=== PATIENT | male | born 1970 | race Caucasian/White ===

== ENCOUNTER 2023-12-13 06:06 | Inpatient (IN) | payer OTHER ==
[2023-12-13] MEDS ORDERED: LORazepam 2 MG/ML VIAL ONE (06:30)
[2023-12-13] MEDS ORDERED: MORPHINE 4 MG/ML SYR ONE ×3 (07:21→14:10)
[2023-12-13] MEDS ORDERED: ONDANSETRON 4 MG/2 ML VIAL ONE (07:21)
[2023-12-13] MEDS ORDERED: LIDOCAINE 1% 20 ML MDV ONE (07:23)
[2023-12-13] MEDS ORDERED: ATROPINE SULF 1 MG/10 ML SYR IV ONE ×2 (07:26→13:54)
[2023-12-13 07:35] LABS: Absolute Eosinophils 0.2 K/uL (0-0.5); Absolute Monocytes 0.5 K/uL (0.1-1.3); Absolute Neutrophil 5.1 K/uL (1.8-8.0); Basophils % 0.7 % (0-1.3); Eosinophils % 2.6 % (0-4.4); Hematocrit 42.6 % (39.6-49.0); Lymphocytes % 14.4 % (15.3-44.8); MCH 32.3 pg (27.0-35.0); MCHC 32.9 g/dL (32.0-36.0); MCV 98.2 fL (80-100); MPV 8.3 fL (7.6-11.3); Monocytes % 6.9 % (3.3-12.3); Neutrophils % 75.4 % (41.7-73.7); Nucleated Red Blood Cells % 0.1 % (0-0); Platelets 163 thou/uL (152-406); RBC Red Blood Cell Count 4.33 M/uL (4.33-5.43); Red Cell Distribution Width 15.7 % (12.1-15.2)
[2023-12-13 07:38] LABS: Protime INR 1.17
[2023-12-13] MEDS ORDERED: SODIUM BICARB 50 MEQ/50ML VIAL ONE ×2 (07:45→08:11)
[2023-12-13] MEDS ORDERED: NOREPINEPHRINE BITARTRATE/D5W 4 MG/250 ML KIT IV ONE (07:46)
--- NOTE | 2023-12-13 08:03 | EDPHYS ---
Physician Documentation [facility] Name: Jamaal Goins Age: 53 yrs Sex: Male : 1970 Arrival Date: 12/13/2023 Time: 06:06 Bed 6 Private MD: ED Physician Gurinder Hinojosa HPI: 12/12 06:43 This 53 yrs old Male presents to ER via Ambulatory with complaints of feeling sp4 unwell . 07:57 Presents with acute generalized weakness and tremors. Heart rate on arrival is 30. sp4 Patient has history of end-stage renal disease last dialysis [facility] 2 days ago. Patient states he woke up feeling badly with generalized parameters and dizziness. Historical: - Allergies: 06:20 GREEN PEAS; jj7 - Home Meds: 08:02 Unable to obtain [Active]; mb9 - PMHx: 06:20 Hypertensive disorder; Gout; jj7 08:02 diaylsis- MWF; leaky valve; mb9 - PSHx: 08:02 fistula; gastric sleeve; mb9 - Immunization history:: Adult Immunizations up to date, Client reports receiving the 2nd dose of the Covid vaccine. - Infectious Disease History:: Denies. - Social history:: Smoking status: Reported history of juuling and/or vaping. Patient uses alcohol, but reports only rare drinking. Patient/guardian denies using street drugs, IV drugs. - Family history:: not pertinent. ROS: 07:57 Constitutional: Generalized weakness, positive tremors, positive dizziness sp4 07:57 All other systems are negative, Exam: 07:57 Constitutional: This is a well developed, well nourished patient who is awake, alert, sp4 generalized pallor and diaphoresis, bradycardia, left arm hemodialysis fistula on exam, full chest wall scars from prior vascular access Head/Face: Normocephalic, atraumatic. Eyes: Pupils equal round and reactive to light, extra-ocular motions intact. Lids and lashes normal. Conjunctiva and sclera are not injected. Cornea within normal limits. Periorbital areas with no swelling, redness, or edema. ENT: Nares patent. No nasal discharge, no septal abnormalities noted. Tympanic membranes are normal and external auditory canals are clear. Oropharynx with no redness, swelling, or masses, exudates, or evidence of obstruction, uvula midline. Mucous membranes moist. Neck: Trachea midline, no thyromegaly or masses palpated, and no cervical lymphadenopathy. Supple, full range of motion without nuchal rigidity, or vertebral point tenderness. Chest/axilla: Normal chest wall appearance and motion. Nontender with no deformity. No lesions are appreciated. Cardiovascular: Bradycardia in the 30s, diaphoresis, thready pulses Respiratory: Lungs have equal breath sounds bilaterally, clear to auscultation and percussion. No rales, rhonchi or wheezes noted. No increased work of breathing, no retractions or nasal flaring. Abdomen/GI: Soft, with normal bowel sounds. No distension or tympany. No guarding or rebound. No evidence of tenderness throughout. Back: No spinal tenderness. No costovertebral tenderness. Skin: Warm, dry with normal turgor. Normal color with no rashes, no lesions, and no evidence of cellulitis. MS/ Extremity: Pulses equal, no cyanosis. Neurovascular intact. Full, normal range of motion. Neuro: Awake and alert, GCS 15, oriented to person, place, time, and situation. Cranial nerves II-XII grossly intact. Motor strength 5/5 in all extremities. Sensory grossly intact. Psych: Awake, alert, with orientation to person, place and time. Behavior, mood, and affect are within normal limits 08:03 ECG was reviewed by the Attending Physician. EKG at 0 654 after IV atropine sinus sp4 rhythm first-degree AV block, left axis deviation , rate 88 Vital Signs: 06:17 BP 160 / 86; Pulse 66; Resp 18; Temp 98.2; Pulse Ox 100% ; Weight 89.81 kg; Height 6 jj7 ft. 0 in. ; Pain 0/10; 07:00 BP 153 / 93; Pulse 83; Resp 16; Pulse Ox 100% on R/A; ld1 07:10 BP 157 / 87; Pulse 76; Resp 15; Pulse Ox 100% ; ld1 07:20 BP 162 / 100; Pulse 60; Resp 18; Pulse Ox 100% ; ld1 07:23 BP 164 / 104; Pulse 59; Resp 10; Pulse Ox 100% ; ld1 07:26 BP 146 / 71; Pulse 54; Resp 14; Pulse Ox 100% ; ld1 07:37 BP 146 / 71; Pulse 48; Resp 16; Pulse Ox 100% on 3 lpm NC; mb9 07:38 BP 110 / 86; Pulse 60; Resp 19; Pulse Ox 99% on 6 lpm NC; ld1 07:40 BP 80 / 31; Pulse 60; Resp 14; Pulse Ox 98% on 6 lpm NC; ld1 07:42 BP 40 / 24; Pulse 60; Resp 20; Pulse Ox 98% on 6 lpm NC; ld1 07:45 BP 80 / 31; Pulse 60; Resp 15; Pulse Ox 100% on 2 lpm NC; mb9 07:51 BP 40 / 24; Pulse 65; Resp 15; Pulse Ox 100% on 3 lpm NC; mb9 07:59 BP 132 / 71; Pulse 70; Resp 18; Pulse Ox 100% on 3 lpm NC; mb9 08:03 BP 132 / 71; Pulse 70; Resp 19; Pulse Ox 100% on 6 lpm NC; ld1 08:10 BP 44 / 35; Pulse 70; Resp 18; Pulse Ox 97% on 6 lpm NC; ld1 08:23 BP 45 / 26; Pulse 77; Resp 32; Pulse Ox 98% on 6 lpm NC; ld1 08:25 BP 161 / 63; Pulse 95; Resp 23; Pulse Ox 100% on 6 lpm NC; ld1 08:36 BP 137 / 79; Pulse 79; Resp 18; Pulse Ox 100% on 2 lpm NC; mb9 08:40 BP 156 / 61; Pulse 80; Resp 13; Pulse Ox 100% on 2 lpm NC; mb9 08:45 BP 74 / 60; Pulse 81; Resp 14; Pulse Ox 100% 2 lpm ; mb9 08:58 BP 111 / 56; Pulse 81; Resp 14; Pulse Ox 100% on 2 lpm NC; mb9 09:15 BP 136 / 77; Pulse 79; Resp 20; Pulse Ox 100% on 2 lpm NC; mb9 09:45 BP 109 / 80; Pulse 73; Resp 18; Pulse Ox 100% on 2 lpm NC; mb9 10:21 BP 122 / 90; Pulse 70; Resp 15; Pulse Ox 100% on 2 lpm NC; mb9 10:45 BP 138 / 75; Pulse 77; Resp 26; Pulse Ox 100% ; ld1 11:15 BP 131 / 52; Pulse 77; Resp 24; Pulse Ox 100% ; ld1 12:00 BP 132 / 82; Pulse 70; Resp 18; Pulse Ox 100% on 2 lpm NC; mb9 12:41 BP 125 / 95; Pulse 80; Resp 18; Pulse Ox 99% on 2 lpm NC; ld1 13:30 BP 138 / 78; Pulse 70; Resp 20; Pulse Ox 100% on R/A; mb9 14:23 BP 145 / 97; Pulse 68; Resp 18; Pulse Ox 100% on 2 lpm NC; mb9 15:33 BP 133 / 74; Pulse 67; Resp 18; Pulse Ox 100% on R/A; mb9 16:09 BP 139 / 85; Pulse 65; Resp 18; Pulse Ox 100% on R/A; ld1 17:18 BP 139 / 86; Pulse 72; Resp 18; Pulse Ox 100% on R/A; mb9 06:17 Body Mass Index 26.85 (89.81 kg, 182.88 cm) [facility] 06:17 Pain Scale: Adult [facility] [place] Coma Score: 07:57 Eye Response: spontaneous(4). Motor Response: obeys commands(6). Verbal Response: sp4 oriented(5). Total: 15. Procedures: 07:57 Central Line: the site was prepped with Betadine, in sterile fashion, a triple lumen sp4 catheter was inserted, in the right femoral vein, in 1 attempts. placement was verified, by blood return, Ultrasound-guided central line, the site was dressed with 4X4s, Tegaderm, using sterile technique, the patient tolerated the procedure, well. Peacemaker applied secondary to symptomatic bradycardia. MDM: 06:45 Patient medically screened. sp4 07:57 Differential Diagnosis altered mental status, sepsis, flu. Data reviewed: vital signs, sp4 nurses notes, EMS record, lab test result(s), EKG, radiologic studies, plain films. Consideration of Admission/Observation Escalation of care including admission/observation considered. Management of patient was discussed with the following: Clinical Trials Manager: Ironing Pleater at [facility]. ED course: Patient improved with the pacemaker. 08:36 ED course: Spoke with area loss prevention manager at [facility] who advised emergent dialysis sp4 before transfer. There is strongly advised emergent dialysis and she requested that we will recollect potassium level prior to transfer. . 08:36 Transition of care: After a detail discussion of the patient's case, care is sp4 transferred to Gurinder Hinojosa MD. 08:48 ED course: Patient care was signed to Dr. Hinojosa at 8 :48 AM . sp4 15:03 ED course: Patient now status post dialysis with post dialysis 1 hour BMP at 5.4. sp3 External pacemaker has been turned off and patient is maintaining sinus rhythm with EKG on the chart. At this time I have contacted the area loss prevention manager at [place] who agrees that transfer is not indicated due to resolution of symptoms after the dialysis. Will keep patient here admitted to our hospitalist service with continued cardiology and renal consult.. 12/12 06:44 Order name: Basic Metabolic Panel; Complete Time: 08:26 sp4 12/12 06:44 Order name: CBC with Diff; Complete Time: 07:48 sp4 12/12 06:44 Order name: LFT's; Complete Time: 08:26 sp4 12/12 06:44 Order name: Magnesium; Complete Time: 08:26 sp4 12/12 06:44 Order name: NT PRO-BNP; Complete Time: 08:26 sp4 12/12 06:44 Order name: PT-INR; Complete Time: 07:48 sp4 12/12 06:44 Order name: Troponin HS; Complete Time: 08:26 sp4 12/12 08:21 Order name: BMP; Complete Time: 09:21 ld1 12/12 08:29 Order name: BMP; Complete Time: 15:03 sp4 12/12 16:48 Order name: CBC with Automated Diff EDMS 12/12 16:48 Order name: CBC with Automated Diff EDMS 12/12 16:48 Order name: Comprehensive Metabolic Panel EDMS 12/12 16:48 Order name: Comprehensive Metabolic Panel EDMS 12/12 16:48 Order name: Magnesium EDMS 12/12 16:48 Order name: Magnesium EDMS 12/12 06:44 Order name: XRAY Chest (1 view); Complete Time: 09:21 sp4 12/12 16:45 Order name: CONS Physician Consult EDMS 12/12 06:44 Order name: Cardiac monitoring; Complete Time: 07:03 sp4 12/12 06:44 Order name: EKG - Nurse/Tech; Complete Time: 07:03 sp4 12/12 06:44 Order name: IV Saline Lock; Complete Time: 07:03 sp4 12/12 06:44 Order name: Labs collected and sent; Complete Time: 07:03 4 12/12 06:44 Order name: O2 Per Protocol; Complete Time: 07:02 4 12/12 06:44 Order name: O2 Sat Monitoring; Complete Time: 07:02 4 12/12 06:44 Order name: Central Line Dressing Kit; Complete Time: 07:02 sp4 12/12 06:44 Order name: Central Line Kit; Complete Time: 07:02 4 12/12 06:44 Order name: Chlorhexidine prep; Complete Time: 07:02 sp4 12/12 06:44 Order name: Line Caps x3; Complete Time: 07:02 sp4 12/12 06:44 Order name: NS Flushes x3; Complete Time: 07:02 4 12/12 06:44 Order name: Sterile Gloves; Complete Time: 07:02 4 12/12 06:44 Order name: Sterile Probe Cover; Complete Time: 07:02 sp4 EC:03 Rate is 88 beats/min. Rhythm is regular, Sinus Rhythm. Left axis deviation noted. [place] sp4 interval is prolonged. QRS interval is prolonged. Clinical impression: No evidence of ischemia. Interpreted by me. Reviewed by me. Administered Medications: 16:43 Discontinued: norepinephrine0.1 mcg/kg/min IV at calculated rate See Administration mb9 Instructions; (Standard concentration 4 mg / 250 mL D5W); Recommended max rate 3 mcg/kg/min; Titrate 0.05 mcg/kg/min as often as every 5 minutes to achieve goal (see titration policy); Goal parameter MAP greater than 65 mmHg. 06:50 Drug: Sodium Bicarbonate IVP 2 amp IVP once; (50 mL); equals 50 mEq Route: IVP; Site: 9 right forearm; 07:45 Follow up: Response: No adverse reaction ld1 06:50 Drug: Sodium Bicarbonate IVP 1 amp IVP once; (50 mL); equals 50 mEq {Note: given by mb9 previous nurse Abad.} Route: IVP; Site: right forearm; 09:10 Follow up: Response: No adverse reaction mb9 07:20 Drug: Ondansetron IVP 4 mg IVP once; over 2 minutes Route: IVP; Site: right forearm; mb9 08:21 Follow up: Response: No adverse reaction ld1 07:24 Drug: morphine IVP or IV 4 mg IVP once over 4 mins Route: IVP; Infused Over: 4 mins; mb9 Site: right forearm; 07:30 Follow up: Response: No adverse reaction ld1 07:26 Drug: Atropine IVP 1 mg IVP once Route: IVP; Site: right forearm; mb9 07:50 Follow up: Response: No adverse reaction ld1 07:43 Drug: morphine IVP or IV 4 mg IVP once over 4 mins Route: IVP; Infused Over: 4 mins; mb9 Site: right forearm; 08:15 Follow up: Response: No adverse reaction ld1 07:51 Drug: Sodium Bicarbonate IVP 1 amp IVP once; (50 mL); equals 50 mEq Route: IVP; Site: mb9 right femoral; 08:15 Follow up: Response: No adverse reaction ld1 07:51 Drug: Norepinephrine IV 0.1 mcg/kg/min IV at calculated rate See Administration mb9 Instructions; (Standard concentration 4 mg / 250 mL D5W); Recommended max rate 3 mcg/kg/min; Titrate 0.05 mcg/kg/min as often as every 5 minutes to achieve goal (see titration policy); Goal parameter MAP greater than 65 mmHg. Route: IV; Rate: calculated rate; Site: right femoral; 17:20 Follow up: Response: No adverse reaction; Blood pressure is elevated; IV Status: mb9 Completed infusion 08:14 Drug: Sodium Bicarbonate IVP 1 amp IVP once; (50 mL); equals 50 mEq Route: IVP; Site: ld1 right femoral; 08:37 Follow up: Response: No adverse reaction mb9 08:15 Drug: Magnesium Sulfate IVPB 2 grams IVPB once over 2 hrs Route: IVPB; Infused Over: 2 ld1 hrs; Site: right femoral; 10:14 Follow up: Response: No adverse reaction; IV Status: Completed infusion mb9 08:15 Drug: D10 in Water IVP 250 ml IVP once Route: IVP; Site: right femoral; ld1 08:40 Follow up: Response: No adverse reaction mb9 08:19 Drug: Calcium Chloride IVP 1 grams IVP once Route: IVP; Site: right femoral; ld1 08:41 Follow up: Response: No adverse reaction mb9 08:20 Drug: Insulin Regular Human IVP 5 units IVP once {Co-Signature: ld1 (Isabella Reis RN).} mb9 Route: IVP; Site: right femoral; 08:40 Follow up: Response: No adverse reaction mb9 08:21 Not Given (Other Intervention Used): mupirocinointment 2 % 1 application Topical once ld1 08:32 Drug: Calcium Gluconate IVPB 1 grams IVPB once over 60 mins; (mix in NS 100 mL) Route: mb9 IVPB; Infused Over: 60 mins; Site: right femoral; 09:26 Follow up: Response: No adverse reaction; IV Status: Completed infusion mb9 08:37 Drug: D10 in Water IVP 250 ml IVP once Route: IVP; Site: right forearm; mb9 09:12 Follow up: Response: No adverse reaction mb9 Disposition Summary: 12/13/23 15:08 Hospitalization Ordered Notes: Hospitalization Status: Inpatient Admission sp3 Provider: Teddy Linares sp3 Condition: Stable(12/13/23 15:08) sp3 Problem: an acute exacerbation(12/13/23 15:08) sp3 Symptoms: have improved(12/13/23 15:08) sp3 Bed/Room Type: Standard sp3 Location: Intensive Care Unit(12/13/23 16:57) eb Room Assignment: 1-(12/13/23 16:59) eb Diagnosis - Hyperkalemia, complete heart block now resolved sp3 Forms: - Medication Reconciliation Form sp3 - SBAR form sp3 - Leadership Thank You Letter sp3 Critical care time excluding procedures: 08:03 Critical care time: Bedside Care: 36 minutes, Consultation: 12 minutes, Family sp4 Intervention: 12 minutes. Total time: 60 minutes 15:04 Critical care time: Bedside Care: 10 minutes, Consultation: 10 minutes, Family sp3 Intervention: 10 minutes. Total time: 30 minutes Signatures: Dispatcher [employer] EDMN Lelia Carlos Isabella Reis, RN RN ld1 Gurinder Hinojosa MD MD sp3 Milli Martines RN RN jjHeidi Hdz RN RN mb9 Ward West MD MD sp4 Isabella Reis RN ld1 Corrections: (The following items were deleted from the chart) 06:44 06:44 BASIC METABOLIC PANEL+C.LAB.BRZ ordered. EDMS EDMS 06:44 06:44 CBC+H.LAB.BRZ ordered. EDMS EDMS 06:44 06:44 HEPATIC FUNCTION+C.LAB.BRZ ordered. EDMS EDMS 06:44 06:44 MAGNESIUM+C.LAB.BRZ ordered. EDMS EDMS 06:44 06:44 PROBNP+C.LAB.BRZ ordered. EDMS EDMS 06:44 06:44 PROTIME (+INR)+COAG.LAB.BRZ ordered. EDMS EDMS 06:44 06:44 Troponin High Sensitivity+C.LAB.BRZ ordered. EDMS EDMS 06:45 06:44 Chest Single View+RAD.RAD.BRZ ordered. EDMS EDMS 08:03 08:02 Home Meds: None; mb9 mb9 09:12 06:44 Consent for central line completed ordered. sp4 mb9 15:05 08:03 [facility] cardiology sp4 sp3 15:05 08:03 [facility] sp4 sp3 15:05 08:03 Higher level of care sp4 sp3 15:05 08:03 Critical sp4 sp3 15:05 08:03 new sp4 sp3 15:05 08:03 have improved sp4 sp3 15:05 08:03 Traumatic bradycardia, complete heart block,, cardiogenic shock, end-stage renal sp3 disease on hemodialysis sp4 16:57 15:08 Telemetry/MedSurg (Inpatient) sp3 eb 16:57 15:08 sp3 eb 16:59 16:57 6- eb eb
--- NOTE | 2023-12-13 08:03 | ER ---
Nurse's Notes [facility] Name: Jamaal Goins Age: 53 yrs Sex: Male : 1970 Arrival Date: 12/13/2023 Time: 06:06 Bed 6 Private MD: Diagnosis: Hyperkalemia, complete heart block now resolved Presentation: 12/12 06:17 Chief complaint: EMS states: HAVING SZ LIKE ACTIVITY. FIRST ONE AT 1:30A. LASTED 45 jj7 SEC. THAN ANOTHER AT 3:30A. THEN AT 5:30A. NO SZ HX. VISITING FROM OUT OF TOWN USUALLY DOES DIALYSIS M,W,F BUT THEY SCHEDULE HIM THR AND THURSDAY. Coronavirus screen: At this time, the client does not indicate any symptoms associated with coronavirus-19. Ebola Screen: No symptoms or risks identified at this time. Initial Sepsis Screen: Does the patient meet any 2 criteria? No. Patient's initial sepsis screen is negative. Does the patient have a suspected source of infection? No. Patient's initial sepsis screen is negative. Risk Assessment: Do you want to hurt yourself or someone else? Patient reports no desire to harm self or others. Onset of symptoms was December 13, 2023 at 01:30. 06:17 Method Of Arrival: Ambulatory [facility] 06:17 Acuity: DANIEL 3 jj7 08:23 Acuity: DANIEL 1 ld1 Triage Assessment: 06:20 General: Appears in no apparent distress. comfortable, Behavior is calm, cooperative, jj7 appropriate for age. Pain: Denies pain. Neuro: No deficits noted. Level of Consciousness is awake, alert, obeys commands, Oriented to person, place, time, situation, Appropriate for age. Historical: - Allergies: 06:20 GREEN PEAS; jj7 - Home Meds: 08:02 Unable to obtain [Active]; mb9 - PMHx: 06:20 Hypertensive disorder; Gout; jj7 08:02 diaylsis- MWF; leaky valve; mb9 - PSHx: 08:02 fistula; gastric sleeve; mb9 - Immunization history:: Adult Immunizations up to date, Client reports receiving the 2nd dose of the Covid vaccine. - Infectious Disease History:: Denies. - Social history:: Smoking status: Reported history of juuling and/or vaping. Patient uses alcohol, but reports only rare drinking. Patient/guardian denies using street drugs, IV drugs. - Family history:: not pertinent. Screenin:17 [facility] ED Fall Risk Assessment (Adult) History of falling in the last 3 months, mb9 including since admission Yes- physiologic fall (2 pts) Confusion or Disorientation Yes (5 pts) Intoxicated or Sedated No (0 pts) Impaired Gait Yes (1 pt) Mobility Assist Device Used No (0 pt) Altered Elimination No (0 pt) Score/Fall Risk Level 3 or more points = High Risk Oriented to surroundings, Maintained a safe environment, Educated pt \T\ family on fall prevention, incl call for assistance when getting out of bed. Abuse screen: Denies threats or abuse. Nutritional screening: No deficits noted. Tuberculosis screening: No symptoms or risk factors identified. Assessment: 06:55 Reassessment: Previous nurse, Abad, states they opened crash cart and administered 2 mb9 amps of Bicarb and 1 Atropine due to pts HR dropping in the 30s. 07:30 Reassessment: ERP at bedside placing central line. mb9 07:36 General: Appears uncomfortable, Behavior is cooperative. Pain: Denies pain. Neuro: mb9 Smith Agitation-Sedation Scale (RASS): 0 - Alert and Calm Level of Consciousness is awake, alert, obeys commands, Oriented to person, place, time, situation, Appropriate for age. Cardiovascular: Heart tones S1 S2 present Patient's skin is warm and dry. Respiratory: Airway is patent Respiratory effort is even, unlabored, Respiratory pattern is regular, symmetrical, Breath sounds are clear bilaterally. GI: Abdomen is round non-distended, Bowel sounds present X 4 quads. Abd is soft and non tender X 4 quads. : No signs and/or symptoms were reported regarding the genitourinary system. EENT: No signs and/or symptoms were reported regarding the EENT system. Derm: Skin is fragile, Skin is dry, Skin is normal, Skin temperature is cool. Musculoskeletal: Range of motion: intact in all extremities. 07:42 Reassessment: pt HR stopped. Pads placed on pt and pacing started at 60 bpm. Pt awake mb9 and alert. 07:50 Reassessment: Patient and/or family updated on plan of care and expected duration. Pain mb9 level reassessed. Patient is alert, oriented x 3, equal unlabored respirations, skin warm/dry/pink. Patient states feeling better. Patient states symptoms have improved. 07:55 Reassessment: Son and daughter at bedside. mb9 08:24 Reassessment: Dr. Mike at bedside with patient. Pt maxed out on Levophed. ERP aware of BP. ld1 08:38 Reassessment: Patient and/or family updated on plan of care and expected duration. Pain mb9 level reassessed. Patient is alert, oriented x 3, equal unlabored respirations, skin warm/dry/pink. 09:00 Reassessment: Transfer pending completion of emergent dialysis. mb9 09:20 Reassessment: Patient appears in no apparent distress at this time. Patient and/or mb9 family updated on plan of care and expected duration. Pain level reassessed. Patient is alert, oriented x 3, equal unlabored respirations, skin warm/dry/pink. 10:14 Reassessment: Dialysis at bedside. mb9 10:22 Reassessment: Patient appears in no apparent distress at this time. Patient and/or mb9 family updated on plan of care and expected duration. Pain level reassessed. Patient is alert, oriented x 3, equal unlabored respirations, skin warm/dry/pink. 11:39 Reassessment: Patient appears in no apparent distress at this time. Patient and/or mb9 family updated on plan of care and expected duration. Pain level reassessed. Patient is alert, oriented x 3, equal unlabored respirations, skin warm/dry/pink. 12:32 Reassessment: Patient appears in no apparent distress at this time. Patient and/or mb9 family updated on plan of care and expected duration. Pain level reassessed. Patient is alert, oriented x 3, equal unlabored respirations, skin warm/dry/pink. 13:05 Reassessment: Diaylsis complete. Magen states he pulled off 1 Liter. mb9 13:08 Reassessment: VO to wait 1 hr to redraw BMP after dialysis has been completed. mb9 14:05 Reassessment: Patient appears in no apparent distress at this time. Patient and/or mb9 family updated on plan of care and expected duration. Pain level reassessed. Patient is alert, oriented x 3, equal unlabored respirations, skin warm/dry/pink. Patient states feeling better. Patient states symptoms have improved. General:. 14:20 Reassessment: pt taken off of pacing per ERP, Dr. Hinojosa. Repeat EKG done. mb9 15:33 Reassessment: Patient appears in no apparent distress at this time. Patient is alert, mb9 oriented x 3, equal unlabored respirations, skin warm/dry/pink. Patient states feeling better. Patient states symptoms have improved. 16:43 Reassessment: Daughter phone number, Ana Goins, . mb9 17:18 Reassessment: No changes from previously documented assessment. Patient and/or family mb9 updated on plan of care and expected duration. Pain level reassessed. Patient is alert, oriented x 3, equal unlabored respirations, skin warm/dry/pink. 17:20 Reassessment: Spoke to pts Daughter Ana, and updated her on pts room change to ICU 1.mb9 Vital Signs: 06:17 BP 160 / 86; Pulse 66; Resp 18; Temp 98.2; Pulse Ox 100% ; Weight 89.81 kg; Height 6 jj7 ft. 0 in. ; Pain 0/10; 07:00 BP 153 / 93; Pulse 83; Resp 16; Pulse Ox 100% on R/A; ld1 07:10 BP 157 / 87; Pulse 76; Resp 15; Pulse Ox 100% ; ld1 07:20 BP 162 / 100; Pulse 60; Resp 18; Pulse Ox 100% ; ld1 07:23 BP 164 / 104; Pulse 59; Resp 10; Pulse Ox 100% ; ld1 07:26 BP 146 / 71; Pulse 54; Resp 14; Pulse Ox 100% ; ld1 07:37 BP 146 / 71; Pulse 48; Resp 16; Pulse Ox 100% on 3 lpm NC; mb9 07:38 BP 110 / 86; Pulse 60; Resp 19; Pulse Ox 99% on 6 lpm NC; ld1 07:40 BP 80 / 31; Pulse 60; Resp 14; Pulse Ox 98% on 6 lpm NC; ld1 07:42 BP 40 / 24; Pulse 60; Resp 20; Pulse Ox 98% on 6 lpm NC; ld1 07:45 BP 80 / 31; Pulse 60; Resp 15; Pulse Ox 100% on 2 lpm NC; mb9 07:51 BP 40 / 24; Pulse 65; Resp 15; Pulse Ox 100% on 3 lpm NC; mb9 07:59 BP 132 / 71; Pulse 70; Resp 18; Pulse Ox 100% on 3 lpm NC; mb9 08:03 BP 132 / 71; Pulse 70; Resp 19; Pulse Ox 100% on 6 lpm NC; ld1 08:10 BP 44 / 35; Pulse 70; Resp 18; Pulse Ox 97% on 6 lpm NC; ld1 08:23 BP 45 / 26; Pulse 77; Resp 32; Pulse Ox 98% on 6 lpm NC; ld1 08:25 BP 161 / 63; Pulse 95; Resp 23; Pulse Ox 100% on 6 lpm NC; ld1 08:36 BP 137 / 79; Pulse 79; Resp 18; Pulse Ox 100% on 2 lpm NC; mb9 08:40 BP 156 / 61; Pulse 80; Resp 13; Pulse Ox 100% on 2 lpm NC; mb9 08:45 BP 74 / 60; Pulse 81; Resp 14; Pulse Ox 100% 2 lpm ; mb9 08:58 BP 111 / 56; Pulse 81; Resp 14; Pulse Ox 100% on 2 lpm NC; mb9 09:15 BP 136 / 77; Pulse 79; Resp 20; Pulse Ox 100% on 2 lpm NC; mb9 09:45 BP 109 / 80; Pulse 73; Resp 18; Pulse Ox 100% on 2 lpm NC; mb9 10:21 BP 122 / 90; Pulse 70; Resp 15; Pulse Ox 100% on 2 lpm NC; mb9 10:45 BP 138 / 75; Pulse 77; Resp 26; Pulse Ox 100% ; ld1 11:15 BP 131 / 52; Pulse 77; Resp 24; Pulse Ox 100% ; ld1 12:00 BP 132 / 82; Pulse 70; Resp 18; Pulse Ox 100% on 2 lpm NC; mb9 12:41 BP 125 / 95; Pulse 80; Resp 18; Pulse Ox 99% on 2 lpm NC; ld1 13:30 BP 138 / 78; Pulse 70; Resp 20; Pulse Ox 100% on R/A; mb9 14:23 BP 145 / 97; Pulse 68; Resp 18; Pulse Ox 100% on 2 lpm NC; mb9 15:33 BP 133 / 74; Pulse 67; Resp 18; Pulse Ox 100% on R/A; mb9 16:09 BP 139 / 85; Pulse 65; Resp 18; Pulse Ox 100% on R/A; ld1 17:18 BP 139 / 86; Pulse 72; Resp 18; Pulse Ox 100% on R/A; mb9 06:17 Body Mass Index 26.85 (89.81 kg, 182.88 cm) j7 06:17 Pain Scale: Adult j7 [place] Coma Score: 07:57 Eye Response: spontaneous(4). Motor Response: obeys commands(6). Verbal Response: sp4 oriented(5). Total: 15. ED Course: 06:09 Patient arrived in ED. gm2 06:20 Triage completed. jj7 06:20 Arm band placed on right wrist. Patient placed in an exam room, on a stretcher, on [facility] materials handling equipment operator. 06:43 Ward West MD is Attending Physician. sp4 06:56 XRAY Chest (1 view) In Process Unspecified. EDMS 07:00 Initial lab(s) drawn, by ED staff, sent to lab. Inserted saline lock: 20 gauge in right mb9 forearm, using aseptic technique. Blood collected. Flushed with 10 mL NS. 07:00 EKG done, by ED staff, reviewed by Ward West MD. mb9 07:15 Heidi Aguirre, RN is Primary Nurse. mb9 07:17 Placed in gown. Bed in low position. Call light in reach. Side rails up X 1. Provided mb9 Education on: press call light if needing anything . Client placed on continuous cardiac and pulse oximetry monitoring. NIBP monitoring applied. senior investment manager on. 07:38 Assisted provider with central line placement. Set up central line tray. Triple lumen mb9 line placed in right femoral. Line placed by Ward West MD Placement verified by CXR, blood return, Dressed with Tegaderm, Patient tolerated well. Patient \T\ family education about procedure, CLABSI prevention and S/S of infection? Yes. Time-out/Briefing performed prior to start of procedure? Yes. Was handwashing/sanitizing done immediately prior to procedure? Yes. Was patient positioned to in a way to prevent air embolism? Yes. Was procedure site sterilized? Yes, with chlorhexidine. Was the site allowed to dry? Yes. Was local anesthetic and/or sedation utilized? Yes. During the procedure, did the Practitioner(s) maintain a sterile field? Yes. Were unused ports clamped during insertion? Yes. Was a 2nd qualified MD obtained after 3 unsuccessful insertion attempts? Yes. Was blood aspirated from each lumen? Yes. After the procedure, did the Practitioner(s) clean the site and apply a sterile dressing? Yes. 07:45 initiated a transfer with [facility] from the [facility] [place]. eb 07:49 Attending Physician role handed off by Ward West MD sp3 07:49 Gurinder Hinojosa MD is Attending Physician. sp3 07:50 Ward West MD is Attending Physician. sp3 07:55 connected the groundskeeper supervisor financial professional for [facility] with Dr. Hinojosa for patient eb transfer consultation. 08:27 connected the reimbursement specialist financial professional for [facility] with Dr. West for patient eb transfer consultation. 08:32 per transfer center/ the reimbursement specialist won't accept the patient right now/ they will hold eb a bed for him but they are requesting the pt get dialyze or correct his potassium. and recheck his level after. 08:37 Patient transferred, IV remains in place. mb9 08:38 BMP Sent. mb9 14:59 connected the reimbursement specialist financial professional for [facility] with Dr. Hinojosa for an eb updated report. 15:03 Attending Physician role handed off by Ward West MD sp3 15:03 Gurinder Hinojosa MD is Attending Physician. sp3 15:07 Teddy Linares MD is Hospitalizing Provider. sp3 Administered Medications: 16:43 Discontinued: norepinephrine0.1 mcg/kg/min IV at calculated rate See Administration mb9 Instructions; (Standard concentration 4 mg / 250 mL D5W); Recommended max rate 3 mcg/kg/min; Titrate 0.05 mcg/kg/min as often as every 5 minutes to achieve goal (see titration policy); Goal parameter MAP greater than 65 mmHg. 06:50 Drug: Sodium Bicarbonate IVP 2 amp IVP once; (50 mL); equals 50 mEq Route: IVP; Site: mb9 right forearm; 07:45 Follow up: Response: No adverse reaction ld1 06:50 Drug: Sodium Bicarbonate IVP 1 amp IVP once; (50 mL); equals 50 mEq {Note: given by mb9 previous nurse Abad.} Route: IVP; Site: right forearm; 09:10 Follow up: Response: No adverse reaction mb9 07:20 Drug: Ondansetron IVP 4 mg IVP once; over 2 minutes Route: IVP; Site: right forearm; mb9 08:21 Follow up: Response: No adverse reaction ld1 07:24 Drug: morphine IVP or IV 4 mg IVP once over 4 mins Route: IVP; Infused Over: 4 mins; mb9 Site: right forearm; 07:30 Follow up: Response: No adverse reaction ld1 07:26 Drug: Atropine IVP 1 mg IVP once Route: IVP; Site: right forearm; mb9 07:50 Follow up: Response: No adverse reaction ld1 07:43 Drug: morphine IVP or IV 4 mg IVP once over 4 mins Route: IVP; Infused Over: 4 mins; mb9 Site: right forearm; 08:15 Follow up: Response: No adverse reaction ld1 07:51 Drug: Sodium Bicarbonate IVP 1 amp IVP once; (50 mL); equals 50 mEq Route: IVP; Site: mb9 right femoral; 08:15 Follow up: Response: No adverse reaction ld1 07:51 Drug: Norepinephrine IV 0.1 mcg/kg/min IV at calculated rate See Administration mb9 Instructions; (Standard concentration 4 mg / 250 mL D5W); Recommended max rate 3 mcg/kg/min; Titrate 0.05 mcg/kg/min as often as every 5 minutes to achieve goal (see titration policy); Goal parameter MAP greater than 65 mmHg. Route: IV; Rate: calculated rate; Site: right femoral; 17:20 Follow up: Response: No adverse reaction; Blood pressure is elevated; IV Status: mb9 Completed infusion 08:14 Drug: Sodium Bicarbonate IVP 1 amp IVP once; (50 mL); equals 50 mEq Route: IVP; Site: ld1 right femoral; 08:37 Follow up: Response: No adverse reaction mb9 08:15 Drug: Magnesium Sulfate IVPB 2 grams IVPB once over 2 hrs Route: IVPB; Infused Over: 2 ld1 hrs; Site: right femoral; 10:14 Follow up: Response: No adverse reaction; IV Status: Completed infusion mb9 08:15 Drug: D10 in Water IVP 250 ml IVP once Route: IVP; Site: right femoral; ld1 08:40 Follow up: Response: No adverse reaction mb9 08:19 Drug: Calcium Chloride IVP 1 grams IVP once Route: IVP; Site: right femoral; ld1 08:41 Follow up: Response: No adverse reaction mb9 08:20 Drug: Insulin Regular Human IVP 5 units IVP once {Co-Signature: ld1 (Isabella Reis RN).} mb9 Route: IVP; Site: right femoral; 08:40 Follow up: Response: No adverse reaction mb9 08:21 Not Given (Other Intervention Used): mupirocinointment 2 % 1 application Topical once ld1 08:32 Drug: Calcium Gluconate IVPB 1 grams IVPB once over 60 mins; (mix in NS 100 mL) Route: mb9 IVPB; Infused Over: 60 mins; Site: right femoral; 09:26 Follow up: Response: No adverse reaction; IV Status: Completed infusion mb9 08:37 Drug: D10 in Water IVP 250 ml IVP once Route: IVP; Site: right forearm; mb9 09:12 Follow up: Response: No adverse reaction mb9 Medication: 08:37 VIS not applicable for this client. mb9 Outcome: 08:03 ER care complete, transfer ordered by . sp4 15:08 Decision to Hospitalize by Provider. sp3 17:17 Admitted to ICU accompanied by nurse, via stretcher, room 1, on monitor, with chart, mb9 Report called to KELLY Willis 17:17 Condition: stable 17:17 Instructed on the need for admit, 17:36 Patient left the ED. ld1 Signatures: Dispatcher [employer] EDMS Lelia Carlos Lauren, KELLY RN ld1 Gurinder Hinojosa MD MD sp3 Milli Martines RN RN jjHeidi Hdz RN RN mb9 Ward West MD MD sp4 Mary Pedroza 2 Isabella Reis RN ld1 Corrections: (The following items were deleted from the chart) 07:47 07:43 Reassessment: mb9 mb9 08:03 08:02 Home Meds: None; mb9 mb9 08:45 08:42 BP 156 / 61; Pulse 80bpm; Resp 13bpm; Pulse Ox 100% 2 lpm Nasal Cannula; ld1 mb9 09:03 08:58 BP 126 / 53; Pulse 81bpm; Resp 14bpm; Pulse Ox 100% 2 lpm Nasal Cannula; mb9 mb9 09:09 08:14 Sodium Bicarbonate IVP 1 amp IVP in right femoral ld1 mb9 09:09 08:38 Response: No adverse reaction mb9 mb9 10:25 10:21 BP 147 / 64; Pulse 70bpm; Resp 15bpm; Pulse Ox 100% 2 lpm Nasal Cannula; mb9 mb9
[2023-12-13 08:06] LABS: Albumin 3.3 g/dL (3.4-5.0); Albumin/Globulin Ratio 0.9 (1.1-1.8); Anion Gap 16.9 mEq/L (5.0-15.0); Bilirubin Direct 0.2 mg/dL (0-0.2); Bilirubin Indirect, Calculated 0.4 mg/dL (0.2-0.8); Bilirubin Total 0.6 mg/dL (0.2-1.0); Globulin 3.5 g/dL (2.3-3.5); Magnesium 2.4 mg/dL (1.6-2.4); Protein, Total 6.8 g/dL (6.4-8.2); Troponin High Sensitivity 42.5 pg/mL (<58.9)
[2023-12-13 08:09] LABS: Potassium 7.9 mEq/L (3.5-5.1)
[2023-12-13] MEDS ORDERED: INSULIN REGULAR (HUMAN) 100 UNIT/ML ONE (08:13)
[2023-12-13] MEDS ORDERED: Magnesium Sulfate 2gm IVPB 2 G/50 ML BAG IV ONE (08:13)
[2023-12-13] MEDS ORDERED: D10W 250 ML IV ONE ×2 (08:14→08:37)
[2023-12-13] MEDS ORDERED: CALCIUM GLUCONATE 1 GM IVPB 1 GM/50 ML BAG IV ONE (08:31)
[2023-12-13 08:47] LABS: Anion Gap 15.3 mEq/L (5.0-15.0)
[2023-12-13 08:51] LABS: Potassium 8.3 mEq/L (3.5-5.1)
--- NOTE | 2023-12-13 09:08 | RAD REPORT ---
EXAM DESCRIPTION: RAD - Chest Single View - 12/13/2023 6:54 am CLINICAL HISTORY: CHEST PAIN Chest pain. COMPARISON: No comparisons FINDINGS: Portable technique limits examination quality. Mild interstitial pulmonary edema seen. The heart is moderately enlarged in size. No displaced fractu res.Nonspecific expanded appearance to the into seventh rib. This is incompletely assessed on this ex amination. IMPRESSION: Mild CHF.
[2023-12-13] MEDS ORDERED: MANNITOL 25% 12.5 GM/50 ML VIAL IV PRN (09:25)
[2023-12-13] MEDS ORDERED: NA CHLORIDE 0.9% 1,000 ML IV PRN (09:25)
[2023-12-13] MEDS ORDERED: ALBUMIN HUMAN 25% 50 ML IV SCH (10:00)
--- NOTE | 2023-12-13 11:43 | P.CNS ---
Date of Consult: 12/13/23 Reason for Consult: ESRD Requesting Physician: Ward West Chief Complaint: Malaise History of Present Illness: 06:43 This 53 yrs old Male presents to ER via Ambulatory with complaints of feeling sp4 unwell . 07:57 Presents with acute generalized weakness and tremors. Heart rate on arrival is 30. sp4 Patient has history of end-stage renal disease last dialysis Thursday 2 days ago. Patient states he woke up feeling badly with generalized parameters and dizziness. He is a resident in the [place] area and is currently visiting for the holiday. Last HD reported as Thursday. 53yo M, PMH: ESRD on HD, HTN, Gout, h/o parathyroidectomy brought to ED due to concern for possible seizure-like activity. On arrival here he was noted to be bradycardic. Received atropine x2. Found to have type 1 heart block, which e volved into complete heart block. ER physician had placed patient on external pacing pads, so when noticed complete heart block, he started externally pacing the patient. Transfer was initiated to [facility] for potential EP evaluation. Shortly after, his blood work returned noting significant hyperkalemia. Director Of Regulatory Affairs at [facility] requested emergent dialysis prior to transfer. Patient underwent emergent dialysis and had rapid improvement of his arrhythmia, coming off the pacing wires around 2 PM. Per ED physician, patient has been stable off of pacing pads for 2-3 hours at the time of my examination. At the time of my exam, patient denies any chest pain, no shortness of breath, no nausea/vomiting, no abdominal pain, no swelling. He reports being in his usual state of health when he went to bed last night. He woke up this morning feeling some burning pain in his legs that felt like it shot up his leg and body up to his head. He does not recall any events after feeling that sensation reach his head. He reports taking all of his medications as previously prescribed, no new medications, no recent change in medication dosage. He is here from [place] for family reunion, reports he drank 2 mixed alcoholic drinks last night. He states it has been nearly 2 years since he last drank. He undergoes dialysis Thursday, and had dialysis on Thursday. He normally has 4-hour treatments, but on Fridays was for 3-1/2 hours since he wanted to make sure he came into town on time. Allergies peas Allergy (Verified 12/13/23 06:48) Itching/Hives/Rash Home medications list reviewed: No - Past Medical/Surgical History -: ESRD -: HTN -: CHF -: CKD MBD -: Gout -: LUE AVF -: Parathyroidectomy -: Gastric Sleeve -: BL TKA - Social History Smoking Status: Former smoker (Currently vapes) Alcohol use: Yes CD- Drugs: No Review of Systems 10-point ROS is otherwise unremarkable General: Weakness, Malaise Neurological: Other (Tremor & Dizzy) Physical Examination General: Oriented x3, Cooperative HEENT: Atraumatic Neck: Supple Respiratory: Normal air movement Cardiovascular: No edema, Regular rate/rhythm Gastrointestinal: Non-distended, No guarding Musculoskeletal: No clubbing, No contractures Integumentary: No rashes, No cyanosis Neurological: Normal speech Laboratory Data (last 24 hrs) 12/13/23 12/13/23 12/13/23 08:27 06:54 06:54 WBC 6.70 Hgb 14.0 Hct 42.6 Plt Count 163 PT 13.0 H INR 1.17 Sodium 133 L Potassium 8.3 H* BUN 57 H Creatinine 9.66 H Glucose 116 H Magnesium Total Bilirubin AST ALT Alkaline Phosphatase 12/13/23 06:54 WBC Hgb Hct Plt Count PT INR Sodium 133 L Potassium 7.9 H* BUN 56 H Creatinine 9.66 H Glucose 87 Magnesium 2.4 Total Bilirubin 0.6 AST 27 ALT 27 Alkaline Phosphatase 159 H Imagings Data: EXAM DESCRIPTION: RAD - Chest Single View - 12/13/2023 6:54 am CLINICAL HISTORY: CHEST PAIN Chest pain. COMPARISON: No comparisons FINDINGS: Portable technique limits examination quality. Mild interstitial pulmonary edema seen. The heart is moderately enlarged in size. No displaced fractures.Nonspecific expanded appearance to the into seventh rib. This is incompletely assessed on this examination. IMPRESSION: Mild CHF. Conclusions/Impression: ESRD on HD MWF -Acute HD ordered -Seen and examined on HD Hyponatremia -Acute HD ordered Hyperkalemia with heart block -Emergent HD ordered -Hyperkalemia cocktail given in the ER -Lokelma X1 HTN with CKD/ CHF -Hold antihypertensives at this time Diastolic CHF, chronic -HD with UF -Low sodium diet CKD MBD Parathyroidectomy -Start Ergo and Calictriol -Resume binders Case reviewed with the ER physician, Dr. West, & the dialysis nurse. Emergent dialysis ordered to prepare the patient for transfer so that he can have an electrophysiology evaluation. Case reviewed with Dr. Linares. The patient will not be transferred but rather admitted. Critical Care: Yes
[2023-12-13] MEDS ORDERED: Calcium Chloride 10% INJ SYR IV ONE (13:54)
[2023-12-13 14:45] LABS: Anion Gap 11.4 mEq/L (5.0-15.0); Potassium 5.4 mEq/L (3.5-5.1)
[2023-12-13] MEDS ORDERED: ACETAMINOPHEN 500 MG TAB PO PRN (16:44)
--- NOTE | 2023-12-13 16:56 | P.HP ---
Certification for Inpatient Patient admitted to: Inpatient With expected LOS: >2 Midnights Practitioner: I am a practitioner with admitting privileges, knowledge of patient current condition, hospital course, and medical plan of care. Services: Services provided to patient in accordance with Admission requirements found in Title 42 Section 412.3 of the Code of Federal Regulations Patient History Date of Service: 12/13/23 Reason for admission: complete heart block, hyperkalemia History of Present Illness: 53yo M, PMH: ESRD on HD, HTN, Gout, h/o parathyroidectomy brought to ED due to concern for possible seizure-like activity. On arrival here he was noted to be bradycardic. Received atropine x2. Found to have type 1 heart block, which evolved into complete heart block. ER physician had placed patient on external pacing pads, so when noticed complete heart block, he started externally pacing the patient. Transfer was initiated to [facility] for potential EP evaluation. S hortly after, his blood work returned noting significant hyperkalemia. Space Sciences Director at [facility] requested emergent dialysis prior to transfer. Patient underwent emergent dialysis and had rapid improvement of his arrhythmia, coming off the pacing wires around 2 PM. Per ED physician, patient has been stable off of pacing pads for 2-3 hours at the time of my examination. At the time of my exam, patient denies any chest pain, no shortness of breath, no nausea/vomiting, no abdominal pain, no swelling. He reports being in his usual state of health when he went to bed last night. He woke up this morning feeling some burning pain in his legs that felt like it shot up his leg and body up to his head. He does not recall any events after feeling that sensation reach his head. He reports taking all of his medications as previously prescribed, no new medications, no recent change in medication dosage. He is here from [place] for family reunion, reports he drank 2 mixed alcoholic drinks last night. He states it has been nearly 2 years since he last drank. He undergoes dialysis Thursday, and had dialysis on Thursday. He normally has 4-hour treatments, but on Fridays was for 3-1/2 hours since he wanted to make sure he came into town on time. Currently he is sitting up in the stretcher, states he feels close to his baseline, states he is hungry and asking for food Allergies peas Allergy (Verified 12/13/23 06:48) Itching/Hives/Rash - Past Medical/Surgical History -: ESRD -: HTN -: CHF -: CKD MBD -: Gout -: s/p parathyroidectomy -: LUE AVF -: parathyroidectomy -: gastric sleeve -: b/l knee replacements Psychosocial/ Personal History: lives at home, from [place] - Family History Family History: Reviewed- Non-Contributory - Social History Smoking Status: Current every day smoker Alcohol use: Yes CD- Drugs: No Place of Residence: Home Review of Systems 10-point ROS is otherwise unremarkable Physical Examination - Physical Exam General: Alert, In no apparent distress, Oriented x3 HEENT: EOMI, Sclerae nonicteric Neck: Supple, No LAD Respiratory: Clear to auscultation bilaterally, Normal air movement Cardiovascular: No edema, Regular rate/rhythm, Systolic murmur Capillary refill: <2 Seconds Gastrointestinal: Soft and benign, Non-distended, No tenderness Musculoskeletal: No contractures, No tenderness Integumentary: No significant lesion, No tenderness/swelling Neurological: Normal speech, Normal strength at 5/5 x4 extr, Normal affect - Studies Laboratory Data (last 24 hrs) 12/13/23 12/13/23 12/13/23 14:07 08:27 06:54 WBC Hgb Hct Plt Count PT 13.0 H INR 1.17 Sodium 135 L 133 L Potassium 5.4 H D 8.3 H* BUN 31 H 57 H Creatinine 6.23 H 9.66 H Glucose 76 116 H Magnesium Total Bilirubin AST ALT Alkaline Phosphatase 12/13/23 12/13/23 06:54 06:54 WBC 6.70 Hgb 14.0 Hct 42.6 Plt Count 163 PT INR Sodium 133 L Potassium 7.9 H* BUN 56 H Creatinine 9.66 H Glucose 87 Magnesium 2.4 Total Bilirubin 0.6 AST 27 ALT 27 Alkaline Phosphatase 159 H Assessment and Plan - Advance Directives Does patient have a Living Will: No Does patient have a Durable POA for Healthcare: No Physician Review Additional Text: Problem List Complete heart block secondary to hyperkalemia ESRD on HD HTN Gout s/p parathyroidectomy Patient zoe'd down, developed complete heart block and briefly had asystole external pacing pads were on patient, and external pacing started. Transfer to tertiary care center was initiated for EP labs returned with hyperkalemia. s/p emergent dialysis Hyperkalemia peaked at 8.3, down to 5.4 after dialysis Patient's heart rate/rhythm rapidly improved after dialysis, he was able to be disconnected from external pacing around 2 PM today Admit to ICU for ongoing monitoring Cardiology nephrology consulted Will discuss with nephrology may need further treatment for his potassium, possibly Lokelma Unclear etiology of his hyperkalemia. Patient reports was in usual state of health, no change in meds. Reports drink to make mixed alcoholic drinks yesterday at a [facility] Repeat labs in the a.m. Currently without chest pain No shortness of breath, Confirm home medications Continue to monitor blood pressure, will hold his antihypertensives for now. Reports he takes losartan and carvedilol VTE: Heparin subcu Code: Full Dispo: Admit to ICU, plan for HD tomorrow Anticipate home on discharge Time Spent Managing Pts Care (In Minutes): 75
[2023-12-13] MEDS: HYDROCODONE/APAP 5/325 MG TAB PO PRN (20:12)
[2023-12-13] MEDS: ROSUVASTATIN 10 MG TAB PO SCH (20:12)
[2023-12-13] MEDS: SODIUM ZIRCONIUM CYCLOSILICATE 10 GM/PKT PO ONE (20:43)
[2023-12-13] MEDS: DOCUSATE NA 100 MG CAP PO SCH (20:43)
[2023-12-13] MEDS: SOD POLYSTYREN SUL 15 GM/60 ML UCUP PO ONE (21:10)
[2023-12-14] MEDS: HEPARIN 5000 UNIT/ML 1 ML VIAL SQ SCH (00:04)
[2023-12-14 04:33] VITALS: O2SAT 99; BMI 28.3
[2023-12-14 05:46] LABS: Absolute Eosinophils 0.2 K/uL (0-0.5); Absolute Lymphocytes (CBC) 0.9 K/uL (0.7-4.9); Absolute Monocytes 0.4 K/uL (0.1-1.3); Basophils % 0.9 % (0-1.3); Eosinophils % 5.9 % (0-4.4); Hematocrit 37.6 % (39.6-49.0); Hemoglobin 12.5 g/dL (13.6-17.9); Lymphocytes % 25.8 % (15.3-44.8); MCH 32.6 pg (27.0-35.0); MCHC 33.3 g/dL (32.0-36.0); MCV 97.8 fL (80-100); MPV 7.9 fL (7.6-11.3); Monocytes % 10.3 % (3.3-12.3); Neutrophils % 57.1 % (41.7-73.7); Nucleated Red Blood Cells % 0.1 % (0-0); Platelets 130 thou/uL (152-406); RBC Red Blood Cell Count 3.84 M/uL (4.33-5.43); Red Cell Distribution Width 15.7 % (12.1-15.2)
[2023-12-14] MEDS: HYDROCODONE/APAP 5/325 MG TAB PO ONE (05:54)
[2023-12-14 06:08] LABS: Albumin 2.9 g/dL (3.4-5.0); Albumin/Globulin Ratio 0.9 (1.1-1.8); Anion Gap 9.8 mEq/L (5.0-15.0); Bilirubin Total 0.7 mg/dL (0.2-1.0); Globulin 3.1 g/dL (2.3-3.5); Magnesium 2.3 mg/dL (1.6-2.4); Potassium 5.8 mEq/L (3.5-5.1)
[2023-12-14 09:30] VITALS: TEMP 97.7
[2023-12-14] MEDS: CALCITROL 0.25 MCG CAP PO SCH (10:08)
[2023-12-14 10:32] LABS: Hepatitis B surface AG Interp. Nonreactive (Nonreactive)
[2023-12-14 10:33] LABS: HBsAG Nonreactive Report Report; Hepatitis B Surface Ab - Quant < 3.10 mIU/mL (<8.0)
[2023-12-14] MEDS: SODIUM ZIRCONIUM CYCLOSILICATE 10 GM/PKT PO ONE (11:54)
--- NOTE | 2023-12-14 12:19 | P.PN ---
Date of Service: 12/14/23 Subjective: ROS: 10 point ROS as noted above, otherwise negative Physical Exam: GEN: Alert, oriented, NAD HEENT: Normal conjunctiva, sclera anicteric CV: Regular rate and rhythm, no edema Pulm: Nonlabored respirations on room air, clear bilaterally ABD: Soft, nontender, nondistended Integumentary: No rashes Neuro: Normal speech, normal affect vitals reviewed Problem List Complete heart block secondary to hyperkalemia ESRD on HD HTN Gout s/p parathyroidectomy Patient zoe'd down, developed complete heart block and briefly had asystole external pacing pads were on patient, and external pacing started. Transfer to tertiary care center was initiated for EP labs returned with hyperkalemia - peaked at 8.3 (12/12) s/p emergent dialysis (12/12); K down to 5.4 after dialysis heart rate/rhythm rapidly improved after dialysis. Patient stable and off external pacing since ~2pm yesterday. Cardiology nephrology consulted Unclear etiology of his hyperkalemia. Patient reports was in usual state of health, no change in meds. Reports drink to make mixed alcoholic drinks yesterday at a family reunion Currently without chest pain or SOB Confirm home medications, restart as appropriate Continue to monitor blood pressure, will hold his antihypertensives for now. Reports he takes losartan and carvedilol VTE: Heparin subcu Code: Full Dispo: Home, ~1 day Anticipate home on discharge Time Spent Managing Pts Care (In Minutes): 41
[2023-12-14 12:41] VITALS: BP 155/104
--- NOTE | 2023-12-14 12:53 | P.DS ---
Admission Date: 12/13/23 Discharge Date: 12/14/23 Disposition: ROUTINE DISCHARGE Discharge Condition: GOOD Reason for Admission: Malaise Consultations: Cardiology - Dr. Ford Nephrology - Dr. Kearney Brief History of Present Illness: 53yo M, PMH: ESRD on HD, HTN, Gout, h/o parathyroidectomy brought to ED due to concern for possible seizure-like activity. On arrival here he was noted to be bradycardic. Received atropine x2. Found to have type 1 heart block, which evolved into complete heart block. ER physician had placed patient on external pacing pads, so when noticed complete heart block, he started externally pacing the patient. Transfer was initiated to [facility] for potential EP evaluation. Shortly after, his blood work returned noting significant hyperkalemia. Chips Screen Tender at [facility] requested emergent dialysis prior to transfer. Patient underwent emergent dialysis and had rapid improvement of his arrhythmia, coming off the pacing wires around 2 PM. Per ED physician, patient has been stable off of pacing pads for 2-3 hours at the time of my examination. At the time of my exam, patient denies any chest pain, no shortness of breath, no nausea/vomiting, no abdominal pain, no swelling. He reports being in his usual state of health when he went to bed last night. He woke up this morning feeling some burning pain in his legs that felt like it shot up his leg and body up to his head. He does not recall any events after feeling that sensation reach his head. He reports taking all of his medications as previously prescribed, no new medications, no recent change in medication dosage. He is here from [place] for family reunion, reports he drank 2 mixed alcoholic drinks last night. He states it has been nearly 2 years since he last drank. He undergoes dialysis Thursday, and had dialysis on Thursday. He normally has 4-hour treatments, but on Fridays was for 3-1/2 hours since he wanted to make sure he came into town on time. Currently he is sitting up in the stretcher, states he feels close to his baseline, states he is hungry and asking for food Hospital Course: Problem List Complete heart block secondary to hyperkalemia ESRD on HD HTN Gout s/p parathyroidectomy Physician discharge instructions: Patient presented with seizure-like activity. On arrival to ER, patient was noted to be bradycardic, which worsened. He received atropine x2. His rhythm evolved into complete heart block secondary to severe hyperkalemia (peak 8.3). He required external pacing until he underwent emergent dialysis and had rapid improvement of his arrhythmia, K improved to 5.4 after dialysis. Patient stable and off external pacing since ~2pm yesterday - within ~1 hour or so after dialysis. Cardiology and nephrology were consulted. He was admitted to ICU for ongoing close monitoring and remained stable for rest of hospitalization. He underwent HD the following morning without any issues. Repeat K was 5.8 on 12/13 prior to dialysis. Unclear etiology of hyperkalemia. He reports he was in his usual state of health prior to this episode and denies any change in medications. He did report having some mixed alcoholic beverages at a family reunion the night before. There is the possibility of the alcohol ingestion may have lead to the increased anion gap / cause some acidosis which would shift his potassium into the blood. Patient reported feeling back to his normal self, no reported chest pain or shortness of breath, and deemed stable for discharge. Recommend follow up with regular stock preparation supervisor in next 1-2 weeks to discuss any further testing. Patient reported having undergone echocardiogram, stress testing, and cardiac catheterization in the last few months in preparation for valve replacement - planned for next month. He reported stress testing was negative. Medications: no change in meds Follow up: PCP 3-5 days Cardiology 1-2 weeks Please call to schedule / confirm appointments Physical Exam: GEN: Alert, oriented, NAD HEENT: Normal conjunctiva, sclera anicteric CV: Regular rate and rhythm, no edema Pulm: Nonlabored respirations on room air, clear bilaterally ABD: Soft, nontender, nondistended Integumentary: No rashes Neuro: Normal speech, normal affect Vital Signs/Physical Exam: Temp Pulse Resp BP Pulse Ox 97.7 F 70 15 155/104 H 100 12/14/23 08:00 12/14/23 12:00 12/14/23 12:00 12/14/23 12:00 12/14/23 12:00 Laboratory Data at Discharge: WBC 3.60 thou/uL (4.3-10.9) L 12/14/23 04:45 Hgb 12.5 g/dL (13.6-17.9) L D 12/14/23 04:45 Hct 37.6 % (39.6-49.0) L 12/14/23 04:45 Plt Count 130 thou/uL (152-406) L 12/14/23 04:45 PT 13.0 SECONDS (9.4-12.5) H 12/13/23 06:54 INR 1.17 12/13/23 06:54 Sodium 134 mEq/L (136-145) L 12/14/23 04:45 Potassium 5.8 mEq/L (3.5-5.1) H 12/14/23 04:45 BUN 45 mg/dL (7-18) H 12/14/23 04:45 Creatinine 7.94 mg/dL (0.70-1.30) H 12/14/23 04:45 Glucose 96 mg/dL (74-106) 12/14/23 04:45 Magnesium 2.3 mg/dL (1.6-2.4) 12/14/23 04:45 Total Bilirubin 0.7 mg/dL (0.2-1.0) 12/14/23 04:45 AST 15 U/L (15-37) 12/14/23 04:45 ALT 22 U/L (16-61) 12/14/23 04:45 Alkaline Phosphatase 131 U/L (45-117) H 12/14/23 04:45 Physician Discharge Instructions: Physician discharge instructions: Patient presented with seizure-like activity. On arrival to ER, patient was noted to be bradycardic, which worsened. He received atropine x2. His rhythm evolved into complete heart block secondary to severe hyperkalemia (peak 8.3). He required external pacing until he underwent emergent dialysis and had rapid improvement of his arrhythmia, K improved to 5.4 after dialysis. Patient stable and off external pacing since ~2pm yesterday - within ~1 hour or so after dialysis. Cardiology and nephrology were consulted. He was admitted to ICU for ongoing close monitoring and remained stable for rest of hospitalization. He underwent HD the following morning without any issues. Repeat K was 5.8 on 12/13 prior to dialysis. Unclear etiology of hyperkalemia. He reports he was in his usual state of health prior to this episode and denies any change in medications. He did report having some mixed alcoholic beverages at a family reunion the night before. There is the possibility of the alcohol ingestion may have lead to the increased anion gap / cause some acidosis which would shift his potassium into the blood. Patient reported feeling back to his normal self, no reported chest pain or shortness of breath, and deemed stable for discharge. Recommend follow up with regular stock preparation supervisor in next 1-2 weeks to discuss any further testing. Patient reported having undergone echocardiogram, stress testing, and cardiac catheterization in the last few months in preparation for valve replacement - planned for next month. He reported stress testing was negative. Medications: no change in meds Follow up: PCP 3-5 days Cardiology 1-2 weeks Please call to schedule / confirm appointments Followup: AlfredoOTOOT [Primary Care Provider] - Time spent managing pt's care (in minutes): 45
--- NOTE | 2023-12-15 12:38 | EKG ---
Test Date: 2023-12-14 Test Time: 12:33:01 Fire Inspector: DM MEASUREMENT RESULTS: Intervals: Rate: 65 WI: 164 QRSD: 108 QT: 460 QTc: 478 [place]: P: 5 WI: 164 QRS: 115 T: 0 INTERPRETIVE STATEMENTS: Sinus rhythm with occasional premature ventricular complexes Lateral infarct, age undetermined Abnormal ECG Compared to ECG 12/14/2023 00:13:24 Ventricular premature complex(es) now present Myocardial infarct finding now present Prolonged QT interval no longer present Electronically Signed On 12-15-23 12:37:02 CDT by Klever Villafuerte
--- NOTE | 2023-12-15 12:39 | EKG ---
Test Date: 2023-12-14 Test Time: 00:13:24 Supervisor Denture Department: AAMIR MEASUREMENT RESULTS: Intervals: Rate: 62 PA: 172 QRSD: 112 QT: 464 QTc: 470 [place]: P: 2 PA: 172 QRS: -29 T: -16 INTERPRETIVE STATEMENTS: Normal sinus rhythm Prolonged QT Abnormal ECG No previous ECG available for comparison Electronically Signed On 12-15-23 12:37:20 CDT by Klever Villafuerte
--- NOTE | 2023-12-15 12:42 | EKG ---
Test Date: 2023-12-13 Test Time: 14:20:52 Sack Repairer: MB MEASUREMENT RESULTS: Intervals: Rate: 66 UT: 174 QRSD: 112 QT: 462 QTc: 484 [place]: P: 16 UT: 174 QRS: 7 T: -30 INTERPRETIVE STATEMENTS: Normal sinus rhythm T wave abnormality, consider inferior ischemia T wave abnormality, consider anterolateral ischemia Prolonged QT Abnormal ECG Compared to ECG 12/13/2023 06:54:28 T-wave abnormality now present Possible ischemia now present Prolonged QT interval now present Sinus arrhythmia no longer present First degree AV block no longer present Left-axis deviation no longer present Electronically Signed On 12-15-23 12:38:51 CDT by Klever Villafuerte
--- NOTE | 2023-12-15 12:43 | EKG ---
Test Date: 2023-12-13 Test Time: 06:54:28 Industrial Sales Manager: AF MEASUREMENT RESULTS: Intervals: Rate: 88 FL: 216 QRSD: 158 QT: 424 QTc: 513 [place]: P: 53 FL: 216 QRS: -39 T: 63 INTERPRETIVE STATEMENTS: Sinus rhythm with sinus arrhythmia with 1st degree AV block Left axis deviation Nonspecific intraventricular block Abnormal ECG No previous ECG available for comparison Electronically Signed On 12-15-23 12:40:11 CDT by Klever Villafuerte
== END 2023-12-14 13:55 | disposition home or self-care (01) | DRG 640 ==
LOC: ER 06:06 → 3RD-ICU 16:42
PROVIDERS: ADMIT Hospitalist; ATTEND Hospitalist
PROC: 5A1D70Z Performance of Urinary Filtration, Intermittent, Less than 6 Hours Per Day (ICD-10-PCS; principal; 2023-12-13)
DX: E87.5 Hyperkalemia (principal); N18.6 End stage renal disease; I50.32 Chronic diastolic (congestive) heart failure; I13.2 Hypertensive heart and chronic kidney disease with heart failure and with stage 5 chronic kidney disease, or end stage renal disease; E87.1 Hypo-osmolality and hyponatremia; M10.9 Gout, unspecified; I44.0 Atrioventricular block, first degree; F17.200 Nicotine dependence, unspecified, uncomplicated; R00.1 Bradycardia, unspecified; Z99.2 Dependence on renal dialysis; Z90.3 Acquired absence of stomach [part of]; Z95.0 Presence of cardiac pacemaker; Z91.018 Allergy to other foods; Z96.653 Presence of artificial knee joint, bilateral
CPT/HCPCS: 36415; 36556; 71045; 80048; 80053; 80076; 83735; 83880; 84484; 85025; 85610; 86706; 87340; 90935; 93005; 94760; 99291; 99292; J0461; J0612; J1644; J2001; J2405; J3475